=== PATIENT | female | born 1990 | race Caucasian/White ===

== ENCOUNTER 2020-11-30 06:54 | Outpatient (NON) | payer OTHER, SELFPAY ==
[2020-11-30 21:14] LABS: SARS-CoV-2 RNA PCR Negative
== END 2020-11-30 06:55 ==
LOC: ANHCOVIDDT 06:59
PROVIDERS: PCP Family Medicine; Visit Provider Family Medicine
DX: R53.83 Other fatigue (principal); R11.0 Nausea; J02.9 Acute pharyngitis, unspecified; Z20.822 Contact with and (suspected) exposure to COVID-19
CPT/HCPCS: C9803; U0003; U0005

== ENCOUNTER → 2021-01-13 17:35 | Outpatient (CLI) | payer OTHER, SELFPAY ==
--- NOTE | ~2021-01-13 | MR_ITS ---
EXAMINATION: MR foot RT wo con DATE: 01/13/2021 18:45 INDICATION: Right foot injury. TECHNIQUE: Magnetic resonance imaging (MRI) of the right foot was performed without intravenous contr ast. Sequences included sagittal T1-weighted FSE and STIR FSE, axial PD-weighted FSE and PD-weighted FS FSE, and coronal T1-weighted FSE and PD-weighted FS FSE. COMPARISON: None FINDINGS: Bone alignment is normal. No fracture. Joint spaces are normal. No joint effusion. The medi al and lateral ankle ligaments are normal. The tendons are normal. The plantar fascia is normal. The muscle bellies are normal. There is subcutaneous edema in the medial midfoot. IMPRESSION: 1. No fracture. Reviewed, dictated and finalized at location A. URE FINISHER IMPRESSION: 1. No fracture.
== END ==
PROVIDERS: Visit Provider Podiatrist Foot & Ankle Surgery
DX: M76.821 Posterior tibial tendinitis, right leg (principal); M76.811 Anterior tibial syndrome, right leg
CPT/HCPCS: 73718